=== PATIENT | female | born 2000 | race African-American/Black ===

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

== ENCOUNTER → 2021-08-11 | Outpatient (CLI) | payer OTHER ==
[~2021-08-11] MED LIST: MIRT30 PO
[2021-08-12 10:56] LABS: Candida species (DNA Probe) Negative (NEGATIVE); G. vaginalis (DNA Probe) Negative (NEGATIVE); T. vaginalis (DNA Probe) Negative (NEGATIVE)
[2021-08-13 02:07] LABS: CHLAMYDIA TRACHOMATIS, NAA Negative (Negative)
== END | disposition home or self-care (01) ==
LOC: LAB 11:55 → LAB SHORT 11:55
PROVIDERS: Nurse Practitioner
DX: R30.9 Painful micturition, unspecified (principal)
CPT/HCPCS: 87086; 87480; 87491; 87510; 87591; 87660

== ENCOUNTER 2021-10-30 05:02 | Emergency (ER) | payer OTHER ==
[~2021-10-30] VITALS: Ht 172.7 cm; Wt 59.0 kg
[~2021-10-30 05:02] MED LIST changes: +TRAZ50 PO
[2021-10-30] MEDS ORDERED: AMOX500 PO (06:00)
== END 2021-10-30 07:15 | disposition home or self-care (01) ==
LOC: ER 05:02
DX: J02.9 Acute pharyngitis, unspecified (principal)
CPT/HCPCS: 86308; 87430; J1100

== ENCOUNTER 2021-11-11 11:42 | Emergency (ER) | payer OTHER ==
[~2021-11-11] VITALS: Ht 172.7 cm; Wt 59.0 kg
[~2021-11-11 11:42] MED LIST changes: +AMOX500 PO
== END 2021-11-11 13:42 | disposition home or self-care (01) ==
LOC: ER 11:42
DX: B27.00 Gammaherpesviral mononucleosis without complication (principal); F17.290 Nicotine dependence, other tobacco product, uncomplicated; Z79.899 Other long term (current) drug therapy
CPT/HCPCS: 86694; 99283